=== PATIENT | female | born 1965 | race Caucasian/White ===

== ENCOUNTER 2020-11-23 10:46 | Outpatient (CLI) | payer BC ==
[2020-11-23 20:56] LABS: SARS-CoV-2 PCR by NAA Not Detected (NotDetected)
== END 2020-11-23 10:47 | disposition home or self-care (01) ==
LOC: CSHLAB 10:46
PROVIDERS: ATTEND Family Medicine
DX: Z01.812 Encounter for preprocedural laboratory examination (principal); Z20.822 Contact with and (suspected) exposure to COVID-19
CPT/HCPCS: 87635; U0003; U0005

== ENCOUNTER 2020-11-27 08:59 | Day surgery (SDC) | payer BC ==
[2020-11-27] MEDS ORDERED: Sodium Bicarbonate 2.5 MEQ/5 ML VIAL ONE (09:22)
[2020-11-27] MEDS ORDERED: Lidocaine 1% PF 5 ML VIAL ONE (09:22)
[2020-11-27] MEDS ORDERED: Naloxone HCl 0.4 mg/ml Vial ONE (09:24)
[2020-11-27] MEDS ORDERED: Fentanyl 100 MCG/2 ML VIAL ONE (09:24)
[2020-11-27] MEDS ORDERED: Midazolam HCl 5 mg/5 ml Vial ONE (09:25)
[2020-11-27 10:12] VITALS: BMI 20.9
[2020-11-27 13:15] VITALS: BP 106/56; TEMP 98.6
== END 2020-11-27 12:00 | disposition home or self-care (01) ==
LOC: CSHCT 08:59
PROVIDERS: ATTEND Family Medicine
DX: C34.11 Malignant neoplasm of upper lobe, right bronchus or lung (principal); Z79.899 Other long term (current) drug therapy; F17.210 Nicotine dependence, cigarettes, uncomplicated
CPT/HCPCS: 32408; 88305; 88333; 88334; 99152; J2250; J2310; J3010

== ENCOUNTER 2025-05-22 11:44 | Outpatient (CLI) | payer BC, MEDICARE | END 2025-05-22 11:45 | disposition home or self-care (01) | LOC: CSHCP 11:44 | PROVIDERS: ATTEND Family Medicine | DX: R06.02 Shortness of breath (principal); J44.9 Chronic obstructive pulmonary disease, unspecified | CPT/HCPCS: 94060; 94664; 94760 ==